=== PATIENT | female | born 1950 | race Caucasian/White ===

== ENCOUNTER 2016-11-15 16:30 | Emergency (ER) | payer MEDICARE, OTHER ==
[2016-11-15] MEDS ORDERED: EPINEPHrine 1 MG/ML 1 ML AMP IM STA (16:42)
[2016-11-15] MEDS ORDERED: diphenhydrAMINE 50 MG/ML 1 ML VIAL IVP STA (16:42)
[2016-11-15] MEDS ORDERED: methylPREDNISolone SOD SUCCI 125 MG/2 ML VIAL IV STA (16:42)
[2016-11-15] MEDS ORDERED: FAMOTIDINE 20 MG/2 ML VIAL IV STA (16:42)
[2016-11-15] MEDS ORDERED: SODIUM CHLORIDE 0.9% 500 ML IV STA (16:42)
[2016-11-15] MEDS ORDERED: SODIUM CHLORIDE 0.9% 1,000 ML IV STA ×3 (16:42→17:49)
[2016-11-15 16:44] VITALS: RESP 18
--- NOTE | 2016-11-15 16:53 | ED ---
General Adult HPI - General Chief complaint: Allergic Reaction Stated complaint: UNRESPONSIVE Time Seen by Provider: 11/15/16 16:34 Source: EMS Mode of arrival: EMS Limitations: no limitations - History of Present Illness Initial comments: This is a 66-year-old female who ER for evaluation today. This patient comes in here for eval initial syncopal event. Patient has no history of syncope. Patient states she doesn't feel like she had a urinary tract infection and began taking an antibiotic that was old that she prescribed or recommended for herself. Patient denies any other chest pain fever nausea this time. EMS also replaced over the patient was passed out when he got there. Patient never lost pulse. She does present today with itching hives and rash all over body anterior chest. Denies stridor denies tongue swelling denies shortness of breath. States her lips are swollen as well - Related Data Home Medications Medication Instructions Recorded Confirmed Hydrocortisone [Cortef] 10 mg PO HS 11/07/14 11/15/16 Hydrocortisone [Cortef] 20 mg PO QAM 11/07/14 11/15/16 Atenolol [Tenormin] 25 mg PO QAM 11/15/16 11/15/16 Atorvastatin Calcium [Lipitor] 10 mg PO HS 11/15/16 11/15/16 Levothyroxine Sodium [Synthroid] 75 mcg PO DAILY 11/15/16 11/15/16 Lisinopril [Prinivil] 20 mg PO HS 11/15/16 11/15/16 Solu-Cortef 100 mg IM ONCE 11/15/16 11/15/16 Previous Rx's Medication Instructions Recorded Famotidine [Pepcid] 20 mg PO BID #15 tablet 11/15/16 Hydrocortisone [Cortef] 20 mg PO BID #15 tablet 11/15/16 hydrOXYzine HCL [Atarax] 25 mg PO QID PRN #30 tab 11/15/16 Allergies Allergy/AdvReac Type Severity Reaction Status Date / Time adhesive Allergy Rash/Hives Verified 11/15/16 16:44 Review of Systems ROS Statement: Those systems with pertinent positive or pertinent negative responses have been documented in the HPI. ROS Other: All systems not noted in ROS Statement are negative. Past Medical History Past Medical History: Hypertension, Thyroid Disorder Additional Past Medical History / Comment(s): addisons disease History of Any Multi-Drug Resistant Organisms: None Reported Additional Past Surgical History / Comment(s): dental implant thyroid Past Psychological History: No Psychological Hx Reported Smoking Status: Light tobacco smoker Past Alcohol Use History: None Reported Past Drug Use History: None Reported General Exam - General Exam Comments Initial Comments: Rash across his entire chest and bilateral upper arms, mild lip swelling Limitations: no limitations General appearance: alert, in no apparent distress, anxious Head exam: Present: atraumatic, normocephalic, normal inspection Eye exam: Present: normal appearance, PERRL, EOMI. Absent: scleral icterus, conjunctival injection, periorbital swelling ENT exam: Present: normal exam, mucous membranes moist Neck exam: Present: normal inspection. Absent: tenderness, meningismus, lymphadenopathy Respiratory exam: Present: normal lung sounds bilaterally. Absent: respiratory distress, wheezes, rales, rhonchi, stridor Cardiovascular Exam: Present: regular rate, normal rhythm, normal heart sounds. Absent: systolic murmur, diastolic murmur, rubs, gallop, clicks GI/Abdominal exam: Present: soft, normal bowel sounds. Absent: distended, tenderness, guarding, rebound, rigid Extremities exam: Present: normal inspection, full ROM, normal capillary refill. Absent: tenderness, pedal edema, joint swelling, calf tenderness Back exam: Present: normal inspection Neurological exam: Present: alert, oriented X3, CN II-XII intact Psychiatric exam: Present: normal affect, normal mood Skin exam: Present: warm, dry, intact, normal color. Absent: rash Course Vital Signs 11/15/16 11/15/16 11/15/16 16:33 16:58 17:09 Temperature 97.5 F L Pulse Rate 82 68 82 Respiratory 18 18 18 Rate Blood Pressure 80/57 128/63 O2 Sat by Pulse 100 100 100 Oximetry 11/15/16 11/15/16 11/15/16 17:19 18:49 19:52 Temperature 98.7 F Pulse Rate 71 77 Respiratory 18 18 18 Rate Blood Pressure 134/67 168/97 O2 Sat by Pulse 100 100 Oximetry - Reevaluation(s) Reevaluation #1: 11/15/16 20:06 Patient's symptoms improved rapidly with injection of epinephrine and steroids here in the emergency room. Reevaluation #2: 11/15/16 20:06 Patient and family spoken with greater than 15 minutes regarding medication taking dosages and ALLERGIC reaction, all questions are answered EKG Findings - EKG Comments: EKG Findings:: EKG shows normal sinus rhythm rate of 80, SD 106, QRS 84, QTC 445 Medical Decision Making - Medical Decision Making 66-year-old here for evaluation of syncopal event, patient had ALLERGIC reaction syncope diffuse body rash lip swelling after taking an antibiotic earlier in the day, Keflex. Patient advised never to take any cephalosporin again, she does agreeable and understands. Patient given epinephrine and steroids in the emergency room, increased steroid dose at home twice a day. Secondary to history of Cowlitz's disease. Currently patient has no complaints , rash and symptoms have resolved, she feels well and can be discharged home. - Lab Data Result diagrams: 11/15/16 16:54 11/15/16 16:54 Lab Results 11/15/16 11/15/16 11/15/16 Range/Units 16:54 16:54 16:54 WBC 11.1 H (3.8-10.6) k/uL RBC 6.04 H (3.80-5.40) m/uL Hgb 18.6 H (11.4-16.0) gm/dL Hct 56.8 H (34.0-46.0) % MCV 94.1 (80.0-100.0) fL MCH 30.9 (25.0-35.0) pg MCHC 32.8 (31.0-37.0) g/dL RDW 13.5 (11.5-15.5) % Plt Count 238 (150-450) k/uL Neutrophils % 78 % Lymphocytes % 16 % Monocytes % 3 % Eosinophils % 1 % Basophils % 0 % Neutrophils # 8.6 H (1.3-7.7) k/uL Lymphocytes # 1.8 (1.0-4.8) k/uL Monocytes # 0.3 (0-1.0) k/uL Eosinophils # 0.1 (0-0.7) k/uL Basophils # 0.0 (0-0.2) k/uL PT (9.0-12.0) sec INR (<1.1) APTT (22.0-30.0) sec D-Dimer (<0.60) mg/L FEU Sodium 138 (137-145) mmol/L Potassium 4.2 (3.5-5.1) mmol/L Chloride 101 (98-107) mmol/L Carbon Dioxide 22 (22-30) mmol/L Anion Gap 15 mmol/L BUN 27 H (7-17) mg/dL Creatinine 1.28 H (0.52-1.04) mg/dL Est GFR (MDRD) Af Amer 51 (>60 ml/min/1.73 sqM) Est GFR (MDRD) Non-Af 42 (>60 ml/min/1.73 sqM) Glucose 226 H (74-99) mg/dL Plasma Lactic Acid Yohannes (0.7-2.0) mmol/L Calcium 9.9 (8.4-10.2) mg/dL Phosphorus 5.3 H (2.5-4.5) mg/dL Magnesium 1.8 (1.6-2.3) mg/dL Total Bilirubin 0.8 (0.2-1.3) mg/dL AST 22 (14-36) U/L ALT 22 (9-52) U/L Alkaline Phosphatase 59 (38-126) U/L Total Creatine Kinase 32 (30-135) U/L CK-MB (CK-2) 0.6 (0.0-2.4) ng/mL CK-MB (CK-2) Rel Index 1.9 Troponin I 0.014 (0.000-0.034) ng/mL Total Protein 6.8 (6.3-8.2) g/dL Albumin 3.8 (3.5-5.0) g/dL 11/15/16 11/15/16 Range/Units 16:54 16:54 WBC (3.8-10.6) k/uL RBC (3.80-5.40) m/uL Hgb (11.4-16.0) gm/dL Hct (34.0-46.0) % MCV (80.0-100.0) fL MCH (25.0-35.0) pg MCHC (31.0-37.0) g/dL RDW (11.5-15.5) % Plt Count (150-450) k/uL Neutrophils % % Lymphocytes % % Monocytes % % Eosinophils % % Basophils % % Neutrophils # (1.3-7.7) k/uL Lymphocytes # (1.0-4.8) k/uL Monocytes # (0-1.0) k/uL Eosinophils # (0-0.7) k/uL Basophils # (0-0.2) k/uL PT 11.1 (9.0-12.0) sec INR 1.1 (<1.1) APTT 21.1 L (22.0-30.0) sec D-Dimer 11.71 H (<0.60) mg/L FEU Sodium (137-145) mmol/L Potassium (3.5-5.1) mmol/L Chloride (98-107) mmol/L Carbon Dioxide (22-30) mmol/L Anion Gap mmol/L BUN (7-17) mg/dL Creatinine (0.52-1.04) mg/dL Est GFR (MDRD) Af Amer (>60 ml/min/1.73 sqM) Est GFR (MDRD) Non-Af (>60 ml/min/1.73 sqM) Glucose (74-99) mg/dL Plasma Lactic Acid Yohannes 3.8 H* (0.7-2.0) mmol/L Calcium (8.4-10.2) mg/dL Phosphorus (2.5-4.5) mg/dL Magnesium (1.6-2.3) mg/dL Total Bilirubin (0.2-1.3) mg/dL AST (14-36) U/L ALT (9-52) U/L Alkaline Phosphatase (38-126) U/L Total Creatine Kinase (30-135) U/L CK-MB (CK-2) (0.0-2.4) ng/mL CK-MB (CK-2) Rel Index Troponin I (0.000-0.034) ng/mL Total Protein (6.3-8.2) g/dL Albumin (3.5-5.0) g/dL - Radiology Data Radiology results: report reviewed (CTA chest CT and and pelvis negative for acute disease), image reviewed Critical Care Time Critical Care Time: Yes Total Critical Care Time: 31 Disposition Clinical Impression: Adverse reaction to drug, Allergic reaction, Anaphylaxis, Syncope Disposition: HOME SELF-CARE Condition: Good Instructions: Anaphylaxis (ED) Prescriptions: Famotidine [Pepcid] 20 mg PO BID #15 tablet Hydrocortisone [Cortef] 20 mg PO BID #15 tablet hydrOXYzine HCL [Atarax] 25 mg PO QID PRN #30 tab PRN Reason: Allergy Symptoms Referrals: Karan Mckeon MD [Primary Care Provider] - 1-2 days
[2016-11-15 17:06] LABS: Basophils % (A) 0 %; CH 30.9; Eosinophils # (A) 0.1 k/uL (0-0.7); Eosinophils % (A) 1 %; HCT 56.8 % (34.0-46.0); HDW 2.39; HGB 18.6 gm/dL (11.4-16.0); Luc # (Auto) 0.28; Luc % (Auto) 3; Lymphocytes # (A) 1.8 k/uL (1.0-4.8); Lymphocytes % (A) 16 %; MCH 30.9 pg (25.0-35.0); MCHC 32.8 g/dL (31.0-37.0); MCV 94.1 fL (80.0-100.0); Mean Platelet Volume 9.9; Monocytes # (A) 0.3 k/uL (0-1.0); Monocytes % (A) 3 %; Neutrophils # (A) 8.6 k/uL (1.3-7.7); Neutrophils % (A) 78 %; RBC 6.04 m/uL (3.80-5.40); RDW 13.5 % (11.5-15.5); WBC 11.1 k/uL (3.8-10.6); WBC (Perox) 11.19
[2016-11-15 17:14] LABS: INR 1.1 (<1.1); Partial Thromboplastin Time 21.1 sec (22.0-30.0); Prothrombin Time 11.1 sec (9.0-12.0)
[2016-11-15 17:24] LABS: Calcium 9.9 mg/dL (8.4-10.2); Magnesium 1.8 mg/dL (1.6-2.3); Phosphorous 5.3 mg/dL (2.5-4.5); Potassium 4.2 mmol/L (3.5-5.1); Total Bilirubin 0.8 mg/dL (0.2-1.3); Total Protein 6.8 g/dL (6.3-8.2)
[2016-11-15 17:34] LABS: Creatine Kinase MB 0.6 ng/mL (0.0-2.4); Troponin I 0.014 ng/mL (0.000-0.034)
[2016-11-15] MEDS ORDERED: ACETAMINOPHEN IV (For NPO) 1,000 MG in EMPTY BAG 1 BAG IVPB STA (17:39)
[2016-11-15] MEDS ORDERED: KETOROLAC 30 MG/ML 1 ML VIAL IVP STA (17:39)
[2016-11-15] MEDS ORDERED: RX INFO: IV CONTRAST WAS GIVEN 1 EACH MISC MISCELLANE PRN (17:48)
--- NOTE | 2016-11-15 19:07 | CT ---
EXAMINATION TYPE: CT angio chest DATE OF EXAM: 11/15/2016 6:34 PM COMPARISON: Chest x-ray 07 November 2014 HISTORY: Elevated D-Dimer and syncope today. CT DLP: 1489.9 mGycm Automated exposure control for dose reduction was used. CONTRAST: CTA scan of the thorax is performed with IV Contrast, patient injected with 50 mL of Visipaque 320, p ulmonary embolism protocol. MIP images are created and reviewed. 3D reconstructed images are create d on an independent workstation and reviewed. FINDINGS: LUNGS: The lungs are grossly clear, there is no concerning parenchymal mass or nodule identified. T here is no pleural effusion or pneumothorax seen. The tracheobronchial tree is patent. AORTA: No additional significant abnormality is seen. MEDIASTINUM: There is satisfactory enhancement of the pulmonary artery and its branches, there is no CT evidence for pulmonary embolism. There are no greater than 1 cm hilar or mediastinal lymph nodes. There are some calcified mediastinal nodes, small prevascular nodes No pericardial effusion is seen . OTHER: There is a hyperdense mass associated with the posterior left kidney measuring approximately 19 mm which is indeterminate. IMPRESSION: NO PULMONARY EMBOLISM. QUESTION OLD GRANULOMATOUS DISEASE. INDETERMINATE LEFT RENAL MASS, FOLLOW-UP I S RECOMMENDED
--- NOTE | 2016-11-15 19:12 | CT ---
EXAMINATION TYPE: CT abdomen pelvis w con DATE OF EXAM: 11/15/2016 6:34 PM COMPARISON: NONE HISTORY: Lower back pain. CT DLP: 1489.9 mGycm Automated exposure control for dose reduction was used. TECHNIQUE: Helical acquisition of images was performed from the lung bases through the pelvis. CONTRAST: Performed without Oral Contrast and with IV Contrast, patient injected with 50 mL of Visipaque 320. FINDINGS: LUNG BASES: No significant abnormality is appreciated. LIVER/GB: Liver shows low attenuation possibly due to fatty infiltration. Gallbladder shows no wall i rregularity anteriorly with possible associated calcification which is indeterminate, there may be an adherent stone present PANCREAS: No significant abnormality is seen. SPLEEN: No significant abnormality is seen. ADRENALS: Not well seen KIDNEYS: Hyperdense lesion associated with the upper pole of the left kidney may represent a hyperden se cyst but is indeterminate, bilateral cortical cysts are present within the kidneys, no hydronephro sis RETROPERITONEAL ADENOPATHY: None visualized REPRODUCTIVE ORGANS: Uterus and adnexal structures are not seen URINARY BLADDER: No significant abnormality is seen. PELVIC ADENOPATHY: None visualized. OSSEOUS STRUCTURES: No significant abnormality is seen. BOWEL: There are small bowel loops which are fluid-filled and show wall thickening throughout much o f the abdomen, some associated free fluid is present within the pelvis. Colonic wall thickening may b e present as well. The appendix is not visualized with certainty. OTHER: IMPRESSION: CORRELATE FOR ENTERITIS, COLITIS. POSSIBLE PROTEINACEOUS CYST IN THE LEFT KIDNEY, FOLLOW-UP IS RECOMM ENDED.
[2016-11-15] MEDS ORDERED: HYDROCORTISONE 20 MG TAB PO STA (19:42)
[2016-11-15 19:53] VITALS: BP 168/97; PULSE 77; TEMP 98.7
== END 2016-11-15 20:27 | disposition home or self-care (01) ==
LOC: EC 16:30
DX: R55 Syncope and collapse (principal); R21 Rash and other nonspecific skin eruption; R22.0 Localized swelling, mass and lump, head; T88.6XXA Anaphylactic reaction due to adverse effect of correct drug or medicament properly administered, initial encounter; T36.1X5A Adverse effect of cephalosporins and other beta-lactam antibiotics, initial encounter; I10 Essential (primary) hypertension; E07.9 Disorder of thyroid, unspecified; E27.1 Primary adrenocortical insufficiency; F17.200 Nicotine dependence, unspecified, uncomplicated; Z79.899 Other long term (current) drug therapy; Z91.048 Other nonmedicinal substance allergy status
CPT/HCPCS: 99291; 96374; 96375 ×4; 96361 ×3; 96372; 36415; 93005; 85379; 80053; 82550; 82553; 83605; 83735; 84100; 84484; 85025; 85610; 85730; 71275; 74177; J0171; J1200; J2930; Q9967; J1885; J0131

== ENCOUNTER 2018-06-05 10:28 | Emergency (ER) | payer MEDICARE, OTHER ==
[2018-06-05] MEDS ORDERED: SODIUM CHLORIDE 0.9% 1,000 ML IV STA (11:01)
[2018-06-05] MEDS ORDERED: METOCLOPRAMIDE 5 MG/ML 2 ML VIAL IVP STA (11:01)
--- NOTE | 2018-06-05 11:04 | ED ---
General Adult HPI - General Chief complaint: Recheck/Abnormal Lab/Rx Stated complaint: villasenor Time Seen by Provider: 06/05/18 10:53 Source: patient, RN notes reviewed Mode of arrival: ambulatory Limitations: no limitations - History of Present Illness Initial comments: Patient is a pleasant 67-year-old female presenting to the emergency Department with headache. Headache has been waxing and waning over the past week. Headache was not sudden onset. Headache generally is not severe however more bothersome. Discomfort is diffuse. Patient did have some blurry vision earlier. No photophobia. No nausea vomiting. No history of chronic headaches. Blood pressure has been running high. Patient did take an extra clonidine this morning. Blood pressure has been as high as 192/114. - Related Data Home Medications Medication Instructions Recorded Confirmed Hydrocortisone [Cortef] 10 mg PO HS 11/07/14 11/15/16 Hydrocortisone [Cortef] 20 mg PO QAM 11/07/14 11/15/16 Atenolol [Tenormin] 25 mg PO QAM 11/15/16 11/15/16 Atorvastatin Calcium [Lipitor] 10 mg PO HS 11/15/16 11/15/16 Levothyroxine Sodium [Synthroid] 75 mcg PO DAILY 11/15/16 11/15/16 Lisinopril [Prinivil] 20 mg PO HS 11/15/16 11/15/16 Solu-Cortef 100 mg IM ONCE 11/15/16 11/15/16 Previous Rx's Medication Instructions Recorded Famotidine [Pepcid] 20 mg PO BID #15 tablet 11/15/16 Hydrocortisone [Cortef] 20 mg PO BID #15 tablet 11/15/16 hydrOXYzine HCL [Atarax] 25 mg PO QID PRN #30 tab 11/15/16 Allergies Allergy/AdvReac Type Severity Reaction Status Date / Time adhesive Allergy Rash/Hives Verified 06/05/18 10:35 Review of Systems ROS Statement: Those systems with pertinent positive or pertinent negative responses have been documented in the HPI. ROS Other: All systems not noted in ROS Statement are negative. Constitutional: Denies: fever Eyes: Denies: eye pain ENT: Denies: ear pain Respiratory: Denies: cough Cardiovascular: Denies: chest pain Endocrine: Denies: fatigue Gastrointestinal: Denies: abdominal pain, nausea, vomiting Genitourinary: Denies: dysuria Musculoskeletal: Denies: back pain Skin: Denies: rash Neurological: Reports: headache. Denies: weakness, confusion Past Medical History Past Medical History: Hypertension, Thyroid Disorder Additional Past Medical History / Comment(s): addisons disease History of Any Multi-Drug Resistant Organisms: None Reported Additional Past Surgical History / Comment(s): dental implant thyroid Past Psychological History: No Psychological Hx Reported Smoking Status: Light tobacco smoker Past Alcohol Use History: None Reported Past Drug Use History: None Reported General Exam Limitations: no limitations General appearance: alert, in no apparent distress Head exam: Present: atraumatic, normocephalic, other (No tenderness over the temporal artery.) Eye exam: Present: normal appearance, PERRL, EOMI. Absent: nystagmus ENT exam: Present: normal oropharynx Neck exam: Present: normal inspection. Absent: tenderness, meningismus Respiratory exam: Present: normal lung sounds bilaterally Cardiovascular Exam: Present: regular rate, normal rhythm GI/Abdominal exam: Present: soft. Absent: tenderness Extremities exam: Present: normal inspection Neurological exam: Present: alert, CN II-XII intact. Absent: motor sensory deficit Expanded Neurological exam: Present: protecting the airway Speech: Present: fluid speech Cranial nerves: EOM's Intact: Normal, Facial Sensation: Normal Cerebellar function: Finger to Nose: Normal Sensory exam: Upper Extremity Light Touch: Normal, Lower Extremity Light Touch: Normal Motor strength exam: RUE: 5, LUE: 5, RLE: 5, LLE: 5 Eye Response: (4) open spontaneously Motor Response: (6) obeys commands Verbal Response: (5) oriented Psychiatric exam: Present: normal affect, normal mood Skin exam: Present: normal color Course Vital Signs 06/05/18 06/05/18 10:34 12:59 Temperature 98.0 F Pulse Rate 50 L Respiratory 20 Rate Blood Pressure 144/85 178/79 O2 Sat by Pulse 96 Oximetry Medical Decision Making - Medical Decision Making Patient reevaluated and resting comfortably in bed. Patient states headache has resolved. Patient updated on results and need for follow-up. - Lab Data Lab Results 06/05/18 Range/Units 11:30 ESR 13 (0-20) mm/hr - Radiology Data Radiology results: image reviewed (Computed tomography scan of the brain reveals no acute intercranial abnormality. Old lacunar infarct.) Disposition Clinical Impression: Headache, Hypertension Disposition: HOME SELF-CARE Condition: Stable Instructions: Acute Headache (ED), Hypertension (ED) Additional Instructions: Please follow-up with primary care physician in the next couple days for recheck. Have primary care physician review recent blood pressures. Return for uncontrolled blood pressure, increased pain, confusion or weakness, worsening symptoms or other concerns. Is patient prescribed a controlled substance at d/c from ED?: No Referrals: Karan Mckeon MD [Primary Care Provider] - 1-2 days Time of Disposition: 13:01
--- NOTE | 2018-06-05 12:35 | CT ---
EXAMINATION TYPE: CT brain wo con DATE OF EXAM: 06/05/2018 COMPARISON: Previous study dated 11/07/2014. HISTORY: Headache and hypertension CT DLP: 1121 mGycm Automated exposure control for dose reduction was used. FINDINGS: There is evidence of an old lacunar infarct in the internal capsule on the right. There are mild changes of sulcal prominence and ventriculomegaly compatible with atrophic change. The re is diffuse periventricular white matter lucency compatible with chronic white matter ischemic albright ge. There is physiologic calcification of the basal ganglia. There is no acute focal lesion, mass effect or midline shift identified. I do not see evidence of int racranial blood. Visualized portions of the paranasal sinuses and mastoids are clear. The bony calvarium is intact. IMPRESSION: 1. NO ACUTE INTRACRANIAL ABNORMALITY. 2. OLD LACUNAR INFARCT IN THE INTERNAL CAPSULE ON THE RIGHT. 3. MILD DEGENERATIVE CHANGE.
[2018-06-05 13:11] VITALS: BP 167/76; PULSE 75; RESP 16; TEMP 97
== END 2018-06-05 13:05 | disposition home or self-care (01) ==
LOC: EC 10:28
DX: I10 Essential (primary) hypertension (principal); R51 Headache; F17.200 Nicotine dependence, unspecified, uncomplicated; Z79.899 Other long term (current) drug therapy; Z91.048 Other nonmedicinal substance allergy status
CPT/HCPCS: 36415; 85652; 70450; 99284; 96374; 96361; J2765

== ENCOUNTER → 2018-08-10 | Outpatient (CLI) | payer MEDICARE, OTHER ==
--- NOTE | 2018-08-10 13:58 | XR ---
EXAMINATION TYPE: XR chest 2V DATE OF EXAM: 08/10/2018 COMPARISON: Prior chest x-ray 11/07/2014 HISTORY: Shortness of breath TECHNIQUE: Frontal and lateral views of the chest are obtained. FINDINGS: There is no focal air space opacity, pleural effusion, or pneumothorax seen. The cardiac silhouette size is within normal limits. There may be a spinal curvature. There is eventration of th e hemidiaphragms. Prominent lung lines are noted. The osseous structures are intact. IMPRESSION: No acute cardiopulmonary process.
--- NOTE | 2018-08-10 15:34 | CT ---
EXAMINATION TYPE: CT angio head DATE OF EXAM: 08/10/2018 12:38 PM COMPARISON: None HISTORY: Head throbbing while laying down CT DLP: 980.7 mGycm Automated exposure control for dose reduction was used. TECHNIQUE: Performed with IV Contrast, patient injected with 80 mL of Isovue 370. Three-D reconstructed images performed on the [employer] computer by the technologist are filmed and pres ented.. FINDINGS: Internal carotid arteries bifurcate normally into A1 and M1 segments. A2 segments are normal. The ant erior communicating artery is patent. No posterior communicating arteries are identified. Vertebral basilar system appears normal. Posterior cerebral vasculature appears normal. No suspicious arterial venous malformations are evident. No aneurysm is identified. Source images are reviewed. Images through the brain as visualized appear grossly normal. IMPRESSION: CTA PAIUTE OF [place] APPEARS UNREMARKABLE.
== END | disposition home or self-care (01) ==
LOC: RADCTMAIN 11:08
PROVIDERS: ATTEND Internal Medicine Geriatric Medicine
DX: R51 Headache (principal); R06.02 Shortness of breath
CPT/HCPCS: 82565; 84520; 71046; 70496; 36415; Q9967

== ENCOUNTER → 2018-08-19 | Outpatient (CLI) | payer MEDICARE, OTHER ==
[2018-08-19 11:17] LABS: T4, Free (Free Thyroxine) 1.47 ng/dL (0.78-2.19)
--- NOTE | 2018-08-19 14:41 | BD ---
EXAMINATION TYPE: Bone Density DATE OF EXAM: 08/19/2018 CLINICAL HISTORY: Height: 63.5 Weight: 139 FRAX RISK QUESTIONS: Alcohol (3 or more units per day): no Family History (Parent hip fracture): no Glucocorticoids (More than 3mos): yes (Ex: prednisone, prednisolone, methylprednisolone, dexamethasone, and hydrocortisone). History of Fracture in Adulthood: no Secondary Osteoporosis: 1. Type 1 Diabetes: no 2. Hyperthyroidism: previously yes 3. Menopause before 45: yes 4. Malnutrition: no 5. Chronic liver disease: no Rheumatoid Arthritis: no Current Tobacco Use: no RISK FACTORS HISTORY OF: Family History of Osteoporosis: not that patient is aware Active: yes Diet low in dairy products/other sources of calcium: no Postmenopausal woman: yes Take estrogen and/or progesterone medications: no now How long: about 20 years Lost more than 2 inches in height since high school: no Frequent falls: no Poor Health: "pretty good considering current health concerns" Hyperparathyroidism: no Adrenal Insufficiency: Addisons MEDICATIONS: Prednisone or other steroids: yes How Long: about 30 years Thyroid Medications: yes Which medication: Synthroid How Long: about 8 years Osteoporosis Medications: not now Which medication: Actonel How Long: briefly Additional Medications: blood pressure meds, cholesterol meds Additional History: Ángel's disease since age 21; oblated thyroid with radioactive treatment years ago EXAM MEASUREMENTS: Bone mineral densitometry was performed using the [employer] System. Bone mineral density as measured about the Lumbar spine is: ----- L1-L4(G/cm2): 0.996 T Score Values are as follows: ----- L2: -2-2 ----- L3: -1.2 ----- L4: -1.2 ----- L1-L4: -1.5 Bone mineral density has: Decreased -3.2% since study of: 03/28/2005 Bone mineral density about the R hip (g/cm2): 0.742 Bone mineral density about the L hip (g/cm2): 0.742 T Score values are as follows: -----R Neck: -2.1 -----L Neck: -2.1 -----R Total: -1.6 -----L Total: -1.8 Bone mineral density has: Decreased -4.0% since study of: 03/28/2005 IMPRESSION: Osteopenia NOTE: T-SCORE=SD OF THE YOUNG ADULT MEAN.
== END | disposition home or self-care (01) ==
LOC: RADBDWWP 11:23
PROVIDERS: ATTEND Internal Medicine
DX: M85.88 Other specified disorders of bone density and structure, other site (principal); Z79.51 Long term (current) use of inhaled steroids
CPT/HCPCS: 36415; 77080; 84439; 84443

== ENCOUNTER → 2020-06-01 | Outpatient (CLI) | payer MEDICARE ==
--- NOTE | 2020-06-01 10:23 | US ---
EXAMINATION TYPE: US kidneys/renal and bladder DATE OF EXAM: 06/01/2020 COMPARISON: US 12/04/2016, CT 11/15/2016 CLINICAL HISTORY: R31.9 Hematuria. EXAM MEASUREMENTS: Right Kidney: 9.4 x 4.3 x 4.3 cm Left Kidney: 9.3 x 4.1 x 3.6 cm Right Kidney: No hydronephrosis. Multiple cystic areas visualized, largest measuring 0.8 x 0.8 x 1.0 cm Left Kidney: No hydronephrosis. Unable to visualized area seen on previous. Echogenic foci visualized measuring 0.3 cm Bladder: wnl Bilateral Jets seen: Yes There is no evidence for hydronephrosis at this point in time. The urinary bladder is anechoic. Seferino ateral ureteral jets are seen. IMPRESSION: Small cysts of the right kidney. Nonobstructing calculus left kidney.
== END | disposition home or self-care (01) ==
LOC: RADUSWWP 09:16
PROVIDERS: ATTEND Internal Medicine Geriatric Medicine
DX: N28.1 Cyst of kidney, acquired (principal); N20.0 Calculus of kidney
CPT/HCPCS: 76770

== ENCOUNTER → 2020-07-16 | Outpatient (CLI) | payer MEDICARE ==
--- NOTE | 2020-07-16 15:42 | CT ---
EXAMINATION TYPE: CT abdomen pelvis wo/w con DATE OF EXAM: 07/16/2020 COMPARISON: 11/15/2016 HISTORY: Back and abdominal pain x [address] DLP: 777.7 mGycm CONTRAST: CT scan of the abdomen and pelvis is performed with Oral Contrast and without and with IV Contrast, p atient injected with 100 mL of Isovue M300. FINDINGS: LUNG BASES-: No visible nodule. No infiltrate. LIVER/GB: No calcified gallstones. No space occupying hepatic lesion. Biliary tree is of normal ca liber. PANCREAS: No inflammation. No distinct mass. SPLEEN: No splenic enlargement. No lesion seen. ADRENALS: No nodule. No thickening. KIDNEYS/BLADDER: No hydronephrosis. No nephrolithiasis. Stable exophytic lesion upper pole left kid raquel medially measuring 1.6 cm which demonstrates Hounsfield unit measurement of approximately 47 both before and after the administration of contrast. This likely reflects a hemorrhagic or highly protei naceous cyst. Subcentimeter simple cysts are also noted bilaterally. Urinary bladder grossly unremark able. BOWEL: Normal appendix. Normal bowel caliber. No inflammation. GENITAL ORGANS: No gross abnormality. LYMPH NODES: No greater than 1cm abdominal or pelvic lymph nodes are appreciated. AORTA: No significant abnormality. OSSEOUS STRUCTURES: No significant abnormality is seen. OTHER: No significant additional abnormality is seen. IMPRESSION: 1. Stable exophytic cyst upper pole left kidney which may reflect a highly proteinaceous or hemorrhag ic cyst. Additional small subcentimeter simple cysts appreciated.
== END | disposition home or self-care (01) ==
LOC: RADCTMAIN 13:15
PROVIDERS: ATTEND Internal Medicine Geriatric Medicine
DX: N28.1 Cyst of kidney, acquired (principal)
CPT/HCPCS: 82565; 84520; 74178; 36415; Q9967 ×2

== ENCOUNTER 2023-06-24 16:39 | Observation (INO) | payer MEDICARE ==
[2023-06-24 17:45] LABS: AST 27 U/L (14-36); African American GFR (CKD) 83 (>60 ml/min/1.73 sqM); Alkaline Phosphatase 70 U/L (38-126); Anion Gap 7 mmol/L; Blood Urea Nitrogen 12 mg/dL (7-17); Calcium 9.4 mg/dL (8.4-10.2); Carbon Dioxide 30 mmol/L (22-30); Chloride 104 mmol/L (98-107); Glucose 116 mg/dL (74-99); Non-African American GFR(CKD) 72 (>60 ml/min/1.73 sqM); Potassium 3.2 mmol/L (3.5-5.1); Sodium 141 mmol/L (137-145); Total Bilirubin 0.4 mg/dL (0.2-1.3); Total Protein 6.9 g/dL (6.3-8.2)
[2023-06-24 17:55] LABS: Basophils % (A) 1 %; Eosinophils # (A) 0.3 k/uL (0-0.7); Eosinophils % (A) 5 %; HCT 43.1 % (34.0-46.0); HGB 14.5 gm/dL (11.4-16.0); Lymphocytes # (A) 2.2 k/uL (1.0-4.8); Lymphocytes % (A) 34 %; MCH 29.9 pg (25.0-35.0); MCHC 33.6 g/dL (31.0-37.0); MCV 89.1 fL (80.0-100.0); Mean Platelet Volume 11.7; Monocytes # (A) 0.4 k/uL (0-1.0); Monocytes % (A) 6 %; Neutrophils # (A) 3.5 k/uL (1.3-7.7); Neutrophils % (A) 53 %; Platelet Count 182 k/uL (150-450); RBC 4.84 m/uL (3.80-5.40); RDW 13.6 % (11.5-15.5); WBC 6.6 k/uL (3.8-10.6)
[2023-06-24] MEDS ORDERED: hydrALAZINE HCL 20 MG/ML 1 ML VIAL IVP STA (18:12)
--- NOTE | 2023-06-24 18:12 | ED ---
General Adult HPI - General Chief complaint: Recheck/Abnormal Lab/Rx Stated complaint: HTN Source: patient Mode of arrival: wheelchair Limitations: no limitations - History of Present Illness Initial comments: 72-year-old female presents to the emergency department by Dr. Tellez office for admission. 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 She does take lisinopril twice daily as well as hydralazine 4 times daily. States she has been taking his medications as directed however continues to have intense headaches with uncontrolled high blood pressure. She went into Dr. Tellez office today and they sent her to the hospital for admi ssion. It has been too hard to control her blood pressures with oral medications. Patient reports to an intense headache. Denies any chest pain or shortness of breath. No visual changes. Denies any weakness or numbness in her extremities. Denies any missed doses of her medication. No other alleviating, precipitating or modifying factors - Related Data Home Medications Medication Instructions Recorded Confirmed Hydrocortisone [Cortef] 10 mg PO BID 11/07/14 06/24/23 Levothyroxine Sodium [Synthroid] 75 mcg PO DAILY 11/15/16 06/24/23 lisinopriL [Prinivil] 20 mg PO BID 11/15/16 06/24/23 Rosuvastatin [Crestor] 20 mg PO HS 06/24/23 06/24/23 hydrALAZINE HCL [Apresoline] 25 mg PO QID 06/24/23 06/24/23 Allergies Allergy/AdvReac Type Severity Reaction Status Date / Time adhesive Allergy Rash/Hives Verified 06/24/23 19:25 Review of Systems ROS Statement: Those systems with pertinent positive or pertinent negative responses have been documented in the HPI. ROS Other: All systems not noted in ROS Statement are negative. Past Medical History Past Medical History: Hypertension, Thyroid Disorder Additional Past Medical History / Comment(s): addisons disease History of Any Multi-Drug Resistant Organisms: None Reported Additional Past Surgical History / Comment(s): dental implant thyroid Past Psychological History: No Psychological Hx Reported Past Alcohol Use History: None Reported Past Drug Use History: None Reported General Exam Limitations: no limitations General appearance: alert, in no apparent distress Head exam: Present: atraumatic, normocephalic, normal inspection Eye exam: Present: normal appearance, PERRL, EOMI. Absent: scleral icterus, conjunctival injection, periorbital swelling ENT exam: Present: normal exam, mucous membranes moist Neck exam: Present: normal inspection. Absent: tenderness, meningismus, lymphadenopathy Respiratory exam: Present: normal lung sounds bilaterally. Absent: respiratory distress, wheezes, rales, rhonchi, stridor Cardiovascular Exam: Present: regular rate, normal rhythm, normal heart sounds. Absent: systolic murmur, diastolic murmur, rubs, gallop, clicks GI/Abdominal exam: Present: soft, normal bowel sounds. Absent: distended, tenderness, guarding, rebound, rigid Extremities exam: Present: normal inspection, full ROM, normal capillary refill. Absent: tenderness, pedal edema, joint swelling, calf tenderness Back exam: Present: normal inspection Neurological exam: Present: alert, oriented X3, CN II-XII intact Psychiatric exam: Present: normal affect, normal mood Skin exam: Present: warm, dry, intact, normal color. Absent: rash Course Vital Signs 06/24/23 06/24/23 06/24/23 16:42 17:30 18:00 Temperature 98.3 F Pulse Rate 60 57 L 62 Respiratory 15 18 18 Rate Blood Pressure 220/95 191/85 205/88 O2 Sat by Pulse 97 99 99 Oximetry 06/24/23 06/24/23 06/24/23 18:30 19:00 19:30 Temperature Pulse Rate 61 69 72 Respiratory 18 18 17 Rate Blood Pressure 228/103 154/72 132/68 O2 Sat by Pulse 99 99 98 Oximetry 06/24/23 06/24/23 06/24/23 20:00 20:30 21:00 Temperature Pulse Rate 67 68 64 Respiratory 18 17 18 Rate Blood Pressure 140/72 138/72 151/75 O2 Sat by Pulse 98 99 99 Oximetry 06/24/23 21:30 Temperature Pulse Rate 62 Respiratory 18 Rate Blood Pressure 136/71 O2 Sat by Pulse 98 Oximetry Medical Decision Making - Medical Decision Making Was pt. sent in by a medical professional or institution (, PA, SOFTWARE RELEASE ENGINEER, urgent care, hospital, or prison...) When possible be specific @ -Dr. Tellez office Did you speak to anyone other than the patient for history (EMS, parent, family, police, friend...)? What history was obtained from this source @ -Dr. Mckeon Did you review nursing and triage notes (agree or disagree)? Why? @ -I reviewed and agree with nursing and triage notes Were old charts reviewed (outside hosp., previous admission, EMS record, old EKG, old radiological studies, urgent care reports/EKG's, prison records)? Report findings @ -No old charts were reviewed Differential Diagnosis (chest pain, altered mental status, abdominal pain women, abdominal pain men, vaginal bleeding, weakness, fever, dyspnea, syncope, headache, dizziness, GI bleed, back pain, seizure, CVA, palpatations, mental health, musculoskeletal)? @ -Differential Headache: Migraine, tension, cluster, carbon monoxide, central venous thrombosis, pension karma temporal arteritis, acute closure glaucoma, intercranial hemorrhage, mastoiditis, sinusitis, head injury, this is not meant to be an all-inclusive list. EKG interpreted by me (3pts min.). @ -Yes and demonstrates sinus rhythm with rate of 61. CO interval 130. QRS 90. QTC of 448. No acute ST segment elevations or depressions X-rays interpreted by me (1pt min.). @ -None done CT interpreted by me (1pt min.). @ -None done U/S interpreted by me (1pt. min.). @ -None done What testing was considered but not performed or refused? (CT, X-rays, U/S, labs)? Why? @ -None What meds were considered but not given or refused? Why? @ -None Did you discuss the management of the patient with other professionals (professionals i.e. , PA, SOFTWARE RELEASE ENGINEER, lab, RT, psych nurse, social media marketer, machine woodworking sander, teacher, chief operating officer, pillowcase cutter)? Give summary @ -Spoke with Valentina from [facility] Was smoking cessation discussed for >3mins.? @ -No Was critical care preformed (if so, how long)? @ -No Were there social determinants of health that impacted care today? How? (Homelessness, low income, unemployed, alcoholism, drug addiction, transpo rtation, low edu. Level, literacy, decrease access to med. care, [facility], rehab)? @ -No Was there de-escalation of care discussed even if they declined (Discuss DNR or withdrawal of care, Hospice)? DNR status @ -No What co-morbidities impacted this encounter? (DM, HTN, Smoking, COPD, CAD, Cancer, CVA, ARF, Chemo, Hep., AIDS, mental health diagnosis, sleep apnea, morbid obesity)? @ -Ángel's disease, hypertension Was patient admitted / discharged? Hospital course, mention meds given and route, prescriptions, significant lab abnormalities, going to OR and other pertinent info. @ -Arrival patient was placed in room 16. There are history of physical exam was performed. Patient markedly hypertensive. Laboratory studies are conducted and reviewed. I did give the patient 20 of hydralazine which she does have improvement in her blood pressure. I discussed the diagnosis, differential and treatment options. Patient will be admitted as it is proven her home m edications are not controlling her blood pressure. Patient requires nephrology consultation. Spoke with Valentina from [facility] who agreed to admit patient Undiagnosed new problem with uncertain prognosis? @ -yes Drug Therapy requiring intensive monitoring for toxicity (Heparin, Nitro, Insulin, Cardizem)? @ -No Were any procedures done? @ -No Diagnosis/symptom? @ -Accelerated hypertension, history of [place]'s disease, acute cephalgia Acute, or Chronic, or Acute on Chronic? @ -Acute on chronic Uncomplicated (without systemic symptoms) or Complicated (systemic symptoms)? @ -Complicated Side effects of treatment? @ -Hypotension Exacerbation, Progression, or Severe Exacerbation? @ -Yes Poses a threat to life or bodily function? How? (Chest pain, [place], [place], pneumonia, PE, COPD, DKA, ARF, appy, cholecystitis, CVA, Diverticulitis, Homicidal, Suicidal, threat to staff... and all critical care pts) @ -No - Lab Data Result diagrams: 06/24/23 17:17 06/24/23 17:17 Lab Results 06/24/23 06/24/23 Range/Units 17:17 17:17 WBC 6.6 (3.8-10.6) k/uL RBC 4.84 (3.80-5.40) m/uL Hgb 14.5 (11.4-16.0) gm/dL Hct 43.1 (34.0-46.0) % MCV 89.1 (80.0-100.0) fL MCH 29.9 (25.0-35.0) pg MCHC 33.6 (31.0-37.0) g/dL RDW 13.6 (11.5-15.5) % Plt Count 182 (150-450) k/uL MPV 11.7 Neutrophils % 53 % Lymphocytes % 34 % Monocytes % 6 % Eosinophils % 5 % Basophils % 1 % Neutrophils # 3.5 (1.3-7.7) k/uL Lymphocytes # 2.2 (1.0-4.8) k/uL Monocytes # 0.4 (0-1.0) k/uL Eosinophils # 0.3 (0-0.7) k/uL Basophils # 0.0 (0-0.2) k/uL Sodium 141 (137-145) mmol/L Potassium 3.2 L (3.5-5.1) mmol/L Chloride 104 (98-107) mmol/L Carbon Dioxide 30 (22-30) mmol/L Anion Gap 7 mmol/L BUN 12 (7-17) mg/dL Creatinine 0.82 (0.52-1.04) mg/dL Est GFR (CKD-EPI)AfAm 83 (>60 ml/min/1.73 sqM) Est GFR (CKD-EPI)NonAf 72 (>60 ml/min/1.73 sqM) Glucose 116 H (74-99) mg/dL Calcium 9.4 (8.4-10.2) mg/dL Total Bilirubin 0.4 (0.2-1.3) mg/dL AST 27 (14-36) U/L ALT 14 (4-34) U/L Alkaline Phosphatase 70 (38-126) U/L Total Protein 6.9 (6.3-8.2) g/dL Albumin 4.0 (3.5-5.0) g/dL TSH 0.077 L (0.465-4.680) mIU/L Free T4 1.88 (0.78-2.19) ng/dL Disposition Clinical Impression: Accelerated hypertension, Addisons disease Disposition: ADMITTED IP TO THIS [facility] Condition: Stable Is patient prescribed a controlled substance at d/c from ED?: No Time of Disposition: 21:01 Decision to Admit Reason: Admit from EC Decision Date: 06/24/23 Decision Time: 21:01
[2023-06-24] MEDS ORDERED: ACETAMINOPHEN TAB 500 MG TAB PO STA (18:44)
[2023-06-24 19:26] LABS: ALT 14 U/L (4-34)
[2023-06-24 20:08] LABS: T4, Free (Free Thyroxine) 1.88 ng/dL (0.78-2.19)
[2023-06-24] MEDS ORDERED: NALOXONE 0.4 MG/ML 1 ML VIAL IV PRN (21:02)
[2023-06-24] MEDS: ACETAMINOPHEN TAB 325 MG TAB PO PRN (22:40)
[2023-06-24] MEDS: ATORVASTATIN 40 MG TAB PO SCH (22:41)
[2023-06-24] MEDS: hydrALAZINE HCL 25 MG TAB PO SCH (22:41)
[2023-06-24] MEDS: HYDROCORTISONE 10 MG TAB PO SCH (22:41)
[2023-06-25] MEDS ORDERED: LEVOTHYROXINE 75 MCG TAB PO SCH (06:30)
[2023-06-25] MEDS ORDERED: Potassium Replacement Protocol 1 EACH MISC MISCELLANE PRN (07:15)
[2023-06-25] MEDS: hydrALAZINE HCL 25 MG TAB PO SCH ×4 (09:20→22:03)
[2023-06-25] MEDS: POTASSIUM CHLORIDE ER 20 MEQ TAB.ER PO SCH ×3 (09:20→11:29)
[2023-06-25] MEDS: lisinopriL 20 MG TAB PO SCH ×2 (09:20→22:03)
[2023-06-25] MEDS: HYDROCORTISONE 10 MG TAB PO SCH ×2 (09:20→22:03)
[2023-06-25] MEDS: ACETAMINOPHEN TAB 325 MG TAB PO PRN (09:23)
[2023-06-25 10:45] LABS: Basophils % (A) 1 %; Eosinophils # (A) 0.3 k/uL (0-0.7); Eosinophils % (A) 6 %; HCT 43.1 % (34.0-46.0); HGB 14.2 gm/dL (11.4-16.0); Lymphocytes # (A) 2.3 k/uL (1.0-4.8); Lymphocytes % (A) 39 %; MCH 29.8 pg (25.0-35.0); MCV 90.2 fL (80.0-100.0); Mean Platelet Volume 10.8; Monocytes # (A) 0.4 k/uL (0-1.0); Monocytes % (A) 6 %; Neutrophils # (A) 2.8 k/uL (1.3-7.7); Neutrophils % (A) 48 %; Platelet Count 211 k/uL (150-450); RBC 4.78 m/uL (3.80-5.40); RDW 13.6 % (11.5-15.5)
[2023-06-25 10:58] LABS: African American GFR (CKD) 79 (>60 ml/min/1.73 sqM); Anion Gap 8 mmol/L; Blood Urea Nitrogen 15 mg/dL (7-17); Calcium 9.6 mg/dL (8.4-10.2); Carbon Dioxide 29 mmol/L (22-30); Chloride 102 mmol/L (98-107); Glucose 101 mg/dL (74-99); Non-African American GFR(CKD) 68 (>60 ml/min/1.73 sqM); Potassium 3.4 mmol/L (3.5-5.1); Sodium 139 mmol/L (137-145)
[2023-06-25] MEDS: IOPAMIDOL CONTRAST (ORAL USE) VIAL PO PRN ×2 (11:53→12:55)
--- NOTE | 2023-06-25 12:38 | P.NPCON ---
History of Present Illness - Reason for Consult accelerated hypertension - History of Present Illness Patient is a 72-year-old female with history of adrenal insufficiency diagnosed about 45 years ago and currently maintained on Cortef. Patient also has a history of hypertension which had been previously very well controlled on one medication. Patient is admitted to the hospital with history of uncontrolled hypertension for about 2-3 weeks prior to admission. Hydralazine was recently added but blood pressure remained significantly elevated and therefore patient was advised admission. Patient denies any change in her diet. No history of use of NSAIDs No reported increase in external stress inducing factors No complaints of palpitations Patient has had a headache which improved with improved blood pressure. Patient only received 1 dose of IV hydralazine and is currently very well controlled with systolic blood pressure in the 120-109 mmHg range. Currently maintained on home dose of lisinopril and hydralazine. Admitting blood pressure was 220/95 No complaints of chest pain or shortness of breath. Patient has complained of increased weakness on and off for many years. She has not followed up with an senior vice president and chief information officer for many years now. Dose of Cortef has not changed recently. Review of Systems As per HPI Past Medical History Past Medical History: Hypertension, Thyroid Disorder Additional Past Medical History / Comment(s): addisons disease History of Any Multi-Drug Resistant Organisms: None Reported Additional Past Surgical History / Comment(s): dental implant thyroid Past Psychological History: No Psychological Hx Reported Past Alcohol Use History: None Reported Past Drug Use History: None Reported Medications and Allergies Home Medications Medication Instructions Recorded Confirmed Type Hydrocortisone [Cortef] 10 mg PO BID 11/07/14 06/24/23 History Levothyroxine Sodium [Synthroid] 75 mcg PO DAILY 11/15/16 06/24/23 History lisinopriL [Prinivil] 20 mg PO BID 11/15/16 06/24/23 History Rosuvastatin [Crestor] 20 mg PO HS 06/24/23 06/24/23 History hydrALAZINE HCL [Apresoline] 25 mg PO QID 06/24/23 06/24/23 History Allergies Allergy/AdvReac Type Severity Reaction Status Date / Time adhesive Allergy Rash/Hives Verified 06/24/23 19:25 Physical Exam Vitals: Vital Signs Temp Pulse Pulse Resp BP BP Pulse Ox 06/25/23 07:00 98.0 F 68 18 177/87 95 06/25/23 06:00 53 L 124/72 06/25/23 05:00 54 L 109/67 06/25/23 04:00 59 L 16 118/71 06/25/23 02:26 77 18 120/67 98 06/25/23 01:15 68 18 133/65 98 06/24/23 21:30 62 18 136/71 98 06/24/23 21:00 64 18 151/75 99 06/24/23 20:30 68 17 138/72 99 06/24/23 20:00 67 18 140/72 98 06/24/23 19:30 72 17 132/68 98 06/24/23 19:00 69 18 154/72 99 06/24/23 18:30 61 18 228/103 99 06/24/23 18:00 62 18 205/88 99 06/24/23 17:30 57 L 18 191/85 99 06/24/23 16:42 98.3 F 60 15 220/95 97 Intake and Output 06/24/23 06/25/23 06/25/23 22:59 06:59 14:59 Other: Weight 61.235 kg Agent is awake, comfortable, no acute distress Alert oriented 3 Examination of the heart S1 and S2 Examination of the lungs bilateral breath sounds are heard Abdomen is soft nontender Examination of the lower extremities shows no evidence of edema REHABILITATION THERAPY TECHNICIAN exam grossly intact Results - Lab Results Most recent lab results Calcium 9.6 mg/dL (8.4-10.2) 06/25/23 10:22 06/25/23 10:22 06/25/23 10:22 Assessment and Plan Assessment: 1. Hypertensive urgency in a patient with previously well-controlled hypertension on one medication. No obvious stress inducing factors identified. No history of NSAIDs. Potassium is low in spite of significant dose of ZULEIMA inhibitors. Secondary causes of hypertension should be ruled out. Given the patient's history of adrenal insufficiency, underlying adrenal gland adenoma is unlikely however due to the presence of hypokalemia and new onset of uncontrol led hypertension I will proceed with workup. Patient is also advised to follow- up with endocrinology. I will continue current dose of Cortef. Since the blood pressure is quite adequately controlled with current regimen I will not add any new medications however patient is advised that if her blood pressure is uncontrolled post discharge she can start low-dose Aldactone. CT angiogram to rule out renal artery stenosis will be ordered along with serum aldosterone and renin levels. Of note is that TSH is low at 0.07 but T4 level is within range. Consider decreasing dose of Synthroid versus follow-up with endocrinology as this could be be secondary hypothyroidism. 2. History of adrenal insufficiency diagnosed about 45-50 years ago after . 3. Hypokalemia in a patient with uncontrolled hypertension and max dose of ZULEIMA inhibitor's, rule out hyperaldosteronism, primary versus secondary 4. Hypothyroidism with low TSH and within range T4 levels. Possible secondary hypothyroidism versus need for decreasing dose of Synthroid Plan: Replace potassium Check serum aldosterone and renin levels Check CTA of the renal arteries rule out renal artery stenosis. Consider decreasing dose of Synthroid as TSH is quite low unless this is central/ secondary hypothyroidism. Free T4 is not elevated Continue current antihypertensive regimen Patient is advised to follow-up with endocrinology post discharge. Next Thank you for the consultation. We will continue to follow the patient with you during her hospitalization.
--- NOTE | 2023-06-25 12:41 | HP ---
HISTORY AND PHYSICAL CHIEF COMPLAINT: Hypertension, failure of outpatient treatment. HISTORY OF PRESENT ILLNESS: This is a 72-year-old woman with a past medical history of multiple medical problems including Ángel's disease since 1973 which was diagnosed after a , was complaining of labile hypertension for the last several days. The blood pressure is even up to 300 and the patient was sent from Dr. Mckeon's office for control of blood pressure. There is no history of any fever, rigors, or chills. The patient is complaining of some head pressure. Multiple consultants are following the patient closely at this time. The patient's potassium is 3.2. The patient had an exophytic cyst in the upper pole of left kidney. PAST MEDICAL HISTORY: Reviewed include Zanoni's disease, rest of the history and rest of the chart is also reviewed. HOME MEDICATIONS: Include lisinopril and rest of the dose and rest of medications reviewed. ALLERGIES: Adhesives. FAMILY HISTORY: No history of heart disease or strokes in the family. SOCIAL HISTORY: No history of smoking or alcohol. REVIEW OF SYSTEMS: A 14-point review is negative except as mentioned earlier. PHYSICAL EXAMINATION: VITAL SIGNS: Pulse is 68, blood pressure 177/87, respirations 18. HEENT: Conjunctivae normal. NECK: No jugular venous distention. CARDIOVASCULAR: S1, S2 muffled. RESPIRATIONS: Diminished at the bases. No rhonchi, no crackles. ABDOMEN: Soft, nontender. LEGS: No edema, no swelling. NERVOUS SYSTEM: No focal deficits. LABORATORY DATA: Noted. ASSESSMENT: 1. Accelerated uncontrolled hypertension with failure of outpatient treatment. 2. Labile hypertension. 3. History of Zanoni's disease. 4. Hypokalemia. 5. Hypothyroidism. 6. History of dental implants. 7. Stable exophytic cyst upper pole of left kidney in the previous CAT scan. RECOMMENDATIONS: This 72-year-old woman presented with multiple complex medical issues, we will monitor the patient closely, adjust the blood pressure medications and we will consult Nephrology and Cardiology and continue to monitor. I would also recommend CT of the brain and also renal ultrasound to rule out possible renal artery stenosis. Prognosis guarded because of multiple complex medical conditions. CT abdomen also will be ordered to complete the workup. Once again, Prognosis guarded. Discussed with the patient, she understands and agrees. MMODL / IJN: [id number] /
[2023-06-25] MEDS ORDERED: hydrALAZINE HCL 25 MG TAB PO SCH (13:00)
--- NOTE | 2023-06-25 13:56 | CT ---
EXAMINATION TYPE: CT brain wo con CT DLP: 1081.6 mGycm, Automated exposure control for dose reduction was used. DATE OF EXAM: 06/25/2023 1:51 PM COMPARISON: Prior CT Brain from 06/05/2018 . CLINICAL INDICATION:Female, 72 years old with history of hypertension, htn TECHNIQUE: Brain: Multiple axial CT images of the brain were obtained without IV contrast. Coronal and sagittal reformats reviewed. FINDINGS: Brain: Extra-axial spaces: No abnormal extra-axial fluid collections. Ventricular system: Within normal limits Cerebral parenchyma: Mild cerebral volume loss. No acute intraparenchymal hemorrhage or mass effect. The dubose-white junction is well differentiated. Scattered hypoattenuating areas are seen within the periventricular white matter. Nonspecific bilateral basal ganglia calcifications. Cerebellum: Unremarkable. Mass effect: No evidence of midline shift. Intracranial vasculature: Atherosclerotic calcifications of the intracranial vessels. Soft tissues: Normal. Calvarium/osseous structures: No depressed skull fracture. Paranasal sinuses and mastoid air cells: Clear Visualized orbits: Bilateral aphakia IMPRESSION: 1. No acute intracranial process. 2. Nonspecific white matter changes, likely secondary to chronic small vessel ischemic disease.
--- NOTE | 2023-06-25 14:08 | CT ---
EXAMINATION TYPE: CT ChestAbdPelvis wo con CT DLP: 549.5 mGycm, Automated exposure control for dose reduction was used. DATE OF EXAM: 06/25/2023 1:51 PM COMPARISON: CT abdomen pelvis 07/16/2020 CLINICAL INDICATION:Female, 72 years old with history of hypertension; PHH, unknown reason for htn Technique: Multiple axial images of the chest, abdomen, and pelvis were obtained without the administ ration of intravenous contrast. Oral contrast was administered. Two-dimensional coronal and sagittal reconstructions were obtained. Findings: Evaluation is limited due to lack of intravenous contrast. CHEST: LUNGS/ PLEURA: The lung parenchyma appears unremarkable. No suspicious pulmonary nodule or mass. AIRWAY: Patent and unremarkable.. HEART: Size within normal limits. No pericardial effusion. MEDIASTINUM: No evidence of adenopathy. VASCULATURE: No aortic aneurysm. Mild atherosclerotic calcification of the aorta and its branches. MUSCULOSKELETAL: No acute osseous abnormalities. SOFT TISSUES/LYMPH NODES: Dystrophic calcifications within the bilateral breasts. LOWER NECK: No significant findings. ABDOMEN: ABDOMEN LIVER: Unremarkable GALLBLADDER AND BILE DUCTS: Unremarkable. PANCREAS: Unremarkable. SPLEEN: Unremarkable. ADRENAL GLANDS: Unremarkable. KIDNEYS AND URETERS: No evidence of hydronephrosis or renal calculus. Exophytic left superior pole 1. 5 cm lesion with Hounsfield unit of 48. This is stable from 2019 PELVIS BLADDER: Unremarkable REPRODUCTIVE: Unremarkable. ABDOMEN & PELVIS STOMACH AND BOWEL: Stomach and duodenum are unremarkable. No focal bowel wall thickening or surroundi ng inflammatory changes. Enteric contrast reaches the distal small bowel. No evidence of bowel obstru ction. PERITONEUM: No evidence of pneumoperitoneum or free fluid. VASCULATURE: Mild atherosclerotic calcifications are present throughout the abdominal aorta and its b ranches. MUSCULOSKELETAL: No acute osseous abnormalities LYMPH NODES: No evidence for lymphadenopathy. SOFT TISSUE/ABDOMINAL WALL: Unremarkable IMPRESSION: 1. No acute process within the chest, abdomen or pelvis. 2. Stable 1.5 cm left renal lesion dating back to 2019 and consider benign likely representing a prot einaceous/hemorrhagic cyst.
[2023-06-25] MEDS: ATORVASTATIN 40 MG TAB PO SCH (22:03)
[2023-06-26] MEDS: LEVOTHYROXINE 50 MCG TAB PO SCH (06:26)
--- NOTE | 2023-06-26 08:20 | CT ---
INDICATION: Patient age:Female; 72 years old; Reason for study: r/o renal artery stenosis; [facility]. COMPARISON: CT chest abdomen pelvis 06/25/2023 TECHNIQUE: Multiple thin slice sub-millimeter images were obtained through the abdomen before and aft er administration of contrast. Patient was given Isovue 370, 75 cc intravenously. 3-D reconstructed images and maximum intensity projection images were obtained of the arterial vasculature of the abdo men. One or more CT dose reduction strategies were utilized during this examination. DLP administered was 372.90 mGycm. FINDINGS: CTA Abdomen and pelvis: The abdominal aorta does not demonstrate aneurysmal dilatation. Atherosclero tic plaquing is identified within the abdominal aorta. The origins of the superior mesenteric artery , renal arteries, inferior mesenteric artery, and celiac axis are patent. There are 2 right renal ar teries and single left renal artery. 1No evidence for renal artery stenosis. VISCERA ABDOMEN: Liver: Unremarkable. Gallbladder and Bile ducts: Unremarkable. Pancreas: Unremarkable. Spleen: Unremarkable. Adrenal glands: Unremarkable. Kidneys and Ureters: No hydronephrosis or renal calculus. Stable 1.5 cm exophytic left superior pole lesion dating back to 2019 and considered benign. No enhancement identified. Likely proteinaceous/hem orrhagic cyst. Stomach and Bowel: No evidence of bowel obstruction or bowel wall thickening. Residual enteric contra st is demonstrated within the colon. Peritoneum: No evidence of pneumoperitoneum, free fluid, or adenopathy. Vasculature: Unremarkable. No aortic aneurysm. Musculoskeletal: The osseous structures appear intact. LOWER CHEST: No significant findings. IMPRESSION: No CTA evidence for renal artery stenosis.
[2023-06-26 08:56] LABS: Hyaline Casts,Urine 1 /lpf (0-2); Mucus,Urine Rare /hpf; RBC,Urine 4 /hpf (0-5); Squamous Epithelial Cell,Urine 3 /hpf (0-4); WBC,Urine 6 /hpf (0-5)
[2023-06-26 08:59] LABS: Appearance,Urine Cloudy (Clear); Bilirubin,Urine Negative (Negative); Blood,Urine Small (Negative); Color,Urine Yellow; Glucose,Urine (UA) Negative (Negative); Ketones,Urine Negative (Negative); Nitrite,Urine Negative (Negative); PH, Urine 6.5 (5.0-8.0); Protein,Urine Trace (Negative); Specific Gravity,Urine 1.015 (1.001-1.035); Urobilinogen,Urine <2.0 mg/dL (<2.0)
[2023-06-26 09:00] LABS: Leukocyte Esterase,Urine Moderate (Negative)
[2023-06-26 09:14] LABS: Basophils # (A) 0.07 X 10*3/uL (0.00-0.10); Basophils % (A) 0.7 %; Eosinophils # (A) 0.35 X 10*3/uL (0.04-0.35); Eosinophils % (A) 3.6 %; HCT 39.7 % (37.2-46.3); Lymphocytes # (A) 1.67 X 10*3/uL (0.90-5.00); Lymphocytes % (A) 17.3 %; MCHC 32.7 d/dL (32.0-37.0); MCV 88.4 FL (80.0-97.0); Mean Platelet Volume 13.7 FL (9.5-12.2); Monocytes # (A) 0.64 X 10*3/uL (0.20-1.00); Monocytes % (A) 6.6 %; NRBC Per 100 WBC 0 X 10*3/uL (0.00-0.01); Neutrophils % (A) 71.5 %; Platelet Count 194 X 10*3/uL (140-440); RBC 4.49 X 10*6/uL (4.10-5.20); RDW 14.3 % (11.5-14.5); WBC 9.66 X 10*3/uL (4.50-10.00)
[2023-06-26 09:31] LABS: ALT 11 U/L (8-44); AST 19 U/L (13-35); Albumin 3.7 d/dL (3.8-4.9); Albumin/Globulin Ratio 1.68 Ratio (1.60-3.17); Alkaline Phosphatase 61 U/L (41-126); BUN/Creat Ratio 15.27 Ratio (12.00-20.00); Blood Urea Nitrogen 16.8 mg/dL (9.0-27.0); Calcium 9.4 mg/dL (8.7-10.3); Chloride 108 mmol/L (96-109); Globulin 2.2 d/dL (1.6-3.3); Glucose 89 mg/dL (70-110); Potassium 4.6 mmol/L (3.5-5.5); Sodium 147 mmol/L (135-145); Total Bilirubin 0.4 mg/dL (0.3-1.2); Total Protein 5.9 d/dL (6.2-8.2)
[2023-06-26] MEDS ORDERED: DEXTROSE 5% IN WATER 1,000 ML IV ONE (09:38)
[2023-06-26] MEDS: HYDROCORTISONE 10 MG TAB PO SCH (09:38)
--- NOTE | 2023-06-26 09:40 | P.PN ---
Subjective Patient is seen in follow-up for hypertension. Patient has a history of adrenal insufficiency and is maintained on Cortef. Blood pressure this morning was on the higher side. Orthostatics negative. No chest pain or shortness of breath. Vital signs are stable. General: No acute distress. HEENT: Head exam is unremarkable. LUNGS: No audible rhonchi or wheezes. HEART: Rate and Rhythm are regular. ABDOMEN: Nontender. EXTREMITITES: No edema. Objective - Vital Signs Vital signs: Vital Signs Temp 98.3 F 06/26/23 07:00 Pulse 64 06/26/23 07:00 Resp 18 06/26/23 07:00 BP 162/84 06/26/23 09:04 Pulse Ox 99 06/26/23 07:00 FiO2 Intake & Output 06/25/23 06/26/23 06/26/23 18:59 06:59 18:59 Intake Total 240 Balance 240 Intake: Oral 240 Other: # Voids 1 2 - Labs CBC & Chem 7: 06/26/23 04:21 06/26/23 04:21 Labs: Abnormal Lab Results - Last 24 Hours (Table) 06/25/23 06/25/23 06/26/23 Range/Units 07:50 10:22 04:21 MPV 13.7 H (9.5-12.2) FL Sodium (135-145) mmol/L Potassium 3.4 L (3.5-5.1) mmol/L Est GFR (CKD-EPI) (>=60) Glucose 101 H (74-99) mg/dL Total Protein (6.2-8.2) d/dL Albumin (3.8-4.9) d/dL Urine Appearance Cloudy H (Clear) Urine WBC 6 H (0-5) /hpf Urine Mucus Rare H (None) /hpf 06/26/23 Range/Units 04:21 MPV (9.5-12.2) FL Sodium 147 H (135-145) mmol/L Potassium (3.5-5.1) mmol/L Est GFR (CKD-EPI) 53 L (>=60) Glucose (74-99) mg/dL Total Protein 5.9 L (6.2-8.2) d/dL Albumin 3.7 L (3.8-4.9) d/dL Urine Appearance (Clear) Urine WBC (0-5) /hpf Urine Mucus (None) /hpf Assessment and Plan Plan: Assessment: 1. Hypertensive urgency with hypokalemia concerning for underlying secondary causes. However patient's also on Cortef which can cause renal potassium loss. Blood pressure Hivid negative orthostatics this morning. TSH low, free T4 normal. Renal angiogram negative for renal artery stenosis. No adrenal nodule noted. 2. Adrenal insufficiency maintained on Cortef. 3. Hypernatremia from lack of oral water intake. Plan: Add spironolactone. Decrease dose of hydrocortisone to 10 mg in the morning and 5 mg at night. Patient advised to see endocrinology outpatient. Follow-up echocardiogram. Follow-up renin and aldosterone levels as well as plasma metanephrines. Add D5W at 50 mL an hour. Repeat sodium level this evening.
[2023-06-26] MEDS: lisinopriL 20 MG TAB PO SCH ×2 (09:41→19:42)
[2023-06-26] MEDS: SPIRONOLACTONE 25 MG TAB PO SCH (09:54)
--- NOTE | 2023-06-26 12:02 | P.CRDCN ---
History of Present Illness History of present illness: HISTORY OF PRESENT ILLNESS: This is a 72-year-old female with a past medical history significant for hypertension, hyperlipidemia, hypothyroidism, and Nelson's disease. Patient does not follow with a plater printed circuit board panels. We have been asked to see the patient in consultation for hypertension. Patient examined at the bedside. Patient states her blood pressure at home has been running high. She also reports having a headache for the past 2 days. She went to see her primary care physician yesterday and was sent to the hospital for further evaluation. Blood pressure on admission was 220/95. The patient's home dose of hydrocortisone has been decreased by nephrology. Patient's blood pressure has improved this morning with a systolic in the 150s. Patient also reports having some palpitations. Telemetry reviewed with some self-limiting runs of atrial tachycardia. * EKG reveals sinus mechanism with nonspecific ST-T wave changes. Mild ST depression in inferior leads * Current home cardiac medications include lisinopril 20mg twice a day, hydralazine 25 mg 4 times a day, rosuvastatin 20 mg at night REVIEW OF SYSTEMS: At the time of my exam: CONSTITUTIONAL: Denies fever or chills. HEENT: Denies blurred vision, vision changes, or eye pain. Denies hemoptysis CARDIOVASCULAR: Denies chest pain. Denies orthopnea. Denies PND. Denies palpitations RESPIRATORY: Denies shortness of breath. GASTROINTESTINAL: Denies abdominal pain. Denies nausea or vomiting. HEMATOLOGIC: Denies bleeding disorders. GENITOURINARY: Denies any blood in urine. SKIN: Denies pruitis. Denies rash. PHYSICAL EXAM: VITAL SIGNS: Reviewed. GENERAL: Well-developed in no acute distress. HEENT: Head is normocephalic. Pupils are equal, round. Sclerae anicteric. Mucous membranes of the mouth are moist. Neck supple. No JVD or thyromegaly LUNGS: Respirations even and unlabored. Lungs essentially clear to auscultation bilaterally. HEART: Regular rate and rhythm. S1 and S2 heard. ABDOMEN: Soft. Nondistended. Nontender. EXTREMITIES: Normal range of motion. No clubbing or cyanosis. Peripheral pulses intact. No lower extremity edema NEUROLOGIC: Awake and alert. Oriented x 3. ASSESSMENT: Headache Hypertensive urgency, improved Runs of atrial tachycardia History of Ángel's disease Hyperlipidemia Hypothyroidism PLAN: Patient's dose of hydrocortisone has been decreased per nephrology Continue lisinopril Discontinue hydralazine Continue to monitor blood pressure and telemetry monitoring Obtain 2-D echo to assess cardiac structure and function Further recommendations pending patient's course Nurse practitioner note has been reviewed by physician. Signing provider agrees with the documented findings, assessment, and plan of care. Past Medical History Past Medical History: Hypertension, Thyroid Disorder Additional Past Medical History / Comment(s): addisons disease History of Any Multi-Drug Resistant Organisms: None Reported Past Surgical History: No Surgical Hx Reported Additional Past Surgical History / Comment(s): dental implant thyroid Past Psychological History: No Psychological Hx Reported Past Alcohol Use History: None Reported Past Drug Use History: None Reported Medications and Allergies Home Medications Medication Instructions Recorded Confirmed Type Hydrocortisone [Cortef] 10 mg PO BID 11/07/14 06/24/23 History Levothyroxine Sodium [Synthroid] 75 mcg PO DAILY 11/15/16 06/24/23 History lisinopriL [Prinivil] 20 mg PO BID 11/15/16 06/24/23 History Rosuvastatin [Crestor] 20 mg PO HS 06/24/23 06/24/23 History hydrALAZINE HCL [Apresoline] 25 mg PO QID 06/24/23 06/24/23 History Allergies Allergy/AdvReac Type Severity Reaction Status Date / Time adhesive Allergy Rash/Hives Verified 06/24/23 19:25 Physical Exam Vitals: Vital Signs Temp Pulse Resp BP BP BP BP 06/26/23 09:04 156/92 171/99 162/84 06/26/23 08:00 18 06/26/23 07:00 98.3 F 64 18 156/83 06/26/23 02:39 98.0 F 72 16 109/66 06/25/23 22:03 88 06/25/23 20:00 88 151/86 06/25/23 15:00 98.1 F 78 16 127/84 Pulse Ox 06/26/23 09:04 06/26/23 08:00 06/26/23 07:00 99 06/26/23 02:39 96 06/25/23 22:03 06/25/23 20:00 06/25/23 15:00 97 Intake and Output 06/25/23 06/26/23 06/26/23 22:59 06:59 14:59 Intake Total 240 35 Balance 240 35 Intake: Oral 240 35 Other: # Voids 2 Results 06/26/23 04:21 06/26/23 04:21 Cardiac Enzymes 06/26/23 Range/Units 04:21 AST 19 (13-35) U/L CBC 06/26/23 Range/Units 04:21 WBC 9.66 (4.50-10.00) X 10*3/uL RBC 4.49 (4.10-5.20) X 10*6/uL Hgb 13.0 (12.0-15.0) d/dL Hct 39.7 (37.2-46.3) % Plt Count 194 (140-440) X 10*3/uL Comprehensive Metabolic Panel 06/26/23 Range/Units 04:21 Sodium 147 H (135-145) mmol/L Potassium 4.6 (3.5-5.5) mmol/L Chloride 108 (96-109) mmol/L Carbon Dioxide 31.0 (21.6-31.8) mmol/L BUN 16.8 (9.0-27.0) mg/dL Creatinine 1.1 (0.6-1.5) mg/dL Glucose 89 (70-110) mg/dL Calcium 9.4 (8.7-10.3) mg/dL AST 19 (13-35) U/L ALT 11 (8-44) U/L Alkaline Phosphatase 61 (41-126) U/L Total Protein 5.9 L (6.2-8.2) d/dL Albumin 3.7 L (3.8-4.9) d/dL Current Medications Generic Name Dose Route Start Last Admin Trade Name Freq PRN Reason Stop Dose Admin Acetaminophen 650 mg 06/24/23 21:16 06/25/23 09:23 Acetaminophen Tab 325 Mg Tab PO 650 mg Q6HR PRN Administration Mild Pain or Fever > 100.5 Atorvastatin Calcium 40 mg 06/24/23 21:30 06/25/23 22:03 Atorvastatin 40 Mg Tab PO 40 mg HS JUAN Administration Hydrocortisone 10 mg 06/26/23 09:00 06/26/23 09:38 Hydrocortisone 10 Mg Tab PO 10 mg DAILY JUAN Administration Hydrocortisone 5 mg 06/26/23 21:00 Hydrocortisone 10 Mg Tab PO HS JUAN Dextrose/Water 1,000 mls @ 50 mls/hr 06/26/23 09:38 06/26/23 09:51 Dextrose 5%-Water Iv Soln IV 06/27/23 05:37 50 mls/hr .Q20H ONE Administration Levothyroxine Sodium 50 mcg 06/26/23 06:30 06/26/23 06:26 Levothyroxine 50 Mcg Tab PO 50 mcg DAILY@0630 JUAN Administration Lisinopril 20 mg 06/25/23 09:00 06/26/23 09:41 Lisinopril 20 Mg Tab PO 20 mg BID JUAN Administration Miscellaneous Information 1 each 06/25/23 07:15 Potassium Replacement Protocol 1 Each Misc MISCELLANE DAILY PRN Per Protocol Protocol Naloxone HCl 0.2 mg 06/24/23 21:02 Naloxone 0.4 Mg/Ml 1 Ml Vial IV Q2M PRN Opioid Reversal Spironolactone 25 mg 06/26/23 09:45 06/26/23 09:54 Spironolactone 25 Mg Tab PO 25 mg DAILY JUAN Administration Intake and Output 06/25/23 06/26/23 06/26/23 22:59 06:59 14:59 Intake Total 240 35 Balance 240 35 Intake: Oral 240 35 Other: # Voids 2 06/26/23 04:21 06/26/23 04:21
[2023-06-26] MEDS: hydrALAZINE HCL 25 MG TAB PO SCH (12:38)
[2023-06-26] MEDS: ATORVASTATIN 40 MG TAB PO SCH (19:42)
--- NOTE | 2023-06-26 20:21 | P.PN ---
Subjective This is a pleasant 72 years old female with multiple medical problems with headache and hypertension on 06/22 Currently patient feels better with no headache. She denies abdominal pain or abdominal pain or discomfort. Blood pressure is better controlled 124/72 and 138/83. Patient currently kept on lisinopril 20 mg twice a daily. And added Aldactone 25 mg 1 hydralazine was discontinued. Dose of levothyroxine lower to 50 g and supportive floor to 10 mg a.m. and 5 mg P.m intead of home dose of 10 mg twice a day. Vision was instructed to follow up with inspector experimental assembly as an outpatient Objective - Vital Signs Vital signs: Vital Signs Temp 98.3 F 06/26/23 07:00 Pulse 64 06/26/23 07:00 Resp 18 06/26/23 08:00 BP 162/84 06/26/23 09:04 Pulse Ox 99 06/26/23 07:00 FiO2 Intake & Output 06/25/23 06/26/23 06/26/23 18:59 06:59 18:59 Intake Total 240 853 Balance 240 853 Intake: Oral 240 853 Other: # Voids 1 2 - Exam GENERAL: The patient is alert and oriented x3, not in any acute distress. Well developed, well nourished. HEENT: Pupils are round and equally reacting to light. EOMI. No scleral icterus. No conjunctival pallor. Normocephalic, atraumatic. No pharyngeal erythema. No thyromegaly. CARDIOVASCULAR: S1 and S2 present. No murmurs, rubs, or gallops. PULMONARY: Chest is clear to auscultation, no wheezing , no crackles. ABDOMEN: Soft, nontender, nondistended, normoactive bowel sounds. No palpable organomegaly. MUSCULOSKELETAL: No joint swelling or deformity. EXTREMITIES: No cyanosis, clubbing, or pedal edema. NEUROLOGICAL: Gross neurological examination did not reveal any focal deficits. SKIN: No rashes. no petechiae. - Labs CBC & Chem 7: 06/26/23 04:21 06/26/23 17:56 Labs: Abnormal Lab Results - Last 24 Hours (Table) 06/25/23 06/26/23 06/26/23 Range/Units 07:50 04:21 04:21 MPV 13.7 H (9.5-12.2) FL Sodium 147 H (135-145) mmol/L Est GFR (CKD-EPI) 53 L (>=60) Total Protein 5.9 L (6.2-8.2) d/dL Albumin 3.7 L (3.8-4.9) d/dL Urine Appearance Cloudy H (Clear) Urine WBC 6 H (0-5) /hpf Urine Mucus Rare H (None) /hpf Assessment and Plan Assessment: Hypertension with urgency present on admission History of Ángel disease and positive Hypothyroidism Mild EKG changes Mild hypernatremia Plan: Continue with D5W Continue with lisinopril and Aldactone and monitor blood pressure Continue with current dose of Cortef and levothyroxine Cardiology and nephrology input is appreciated Follow-up echocardiogram Labs and medication were reviewed.. Continue same treatment. Continue with symptomatic treatment. Resume home medication. Monitor labs and vitals. DVT and GI prophylaxis. Further recommendations as per clinical course of the patient DVT prophylaxis: Subcutaneous heparin GI Prophylaxis: Pepcid Prognosis is guarded
[2023-06-26] MEDS ORDERED: HYDROCORTISONE 10 MG TAB PO SCH (21:00)
[2023-06-27] MEDS: LEVOTHYROXINE 50 MCG TAB PO SCH (05:33)
[2023-06-27] MEDS: lisinopriL 20 MG TAB PO SCH (08:36)
[2023-06-27] MEDS: SPIRONOLACTONE 25 MG TAB PO SCH (08:36)
[2023-06-27] MEDS: HYDROCORTISONE 10 MG TAB PO SCH (08:36)
[2023-06-27] MEDS: ACETAMINOPHEN TAB 325 MG TAB PO PRN (08:40)
[2023-06-27 09:51] LABS: Blood Urea Nitrogen 12.6 mg/dL (9.0-27.0); Calcium 9.5 mg/dL (8.7-10.3); Carbon Dioxide 23.2 mmol/L (21.6-31.8); Chloride 108 mmol/L (96-109); Glucose 73 mg/dL (70-110); Magnesium 1.9 mg/dL (1.5-2.4); Potassium 4.1 mmol/L (3.5-5.5); Sodium 142 mmol/L (135-145)
--- NOTE | 2023-06-27 11:58 | CA ---
Transthoracic Echo Report Name: Elvia Diallo Age: 72 Gender: F : 1950 Exam Date: 06/26/2023 17:20 Exam Location: [place] [facility] Ht (in): 65 Wt (lb): 135 Ordering Physician: Ashutosh Dotson MD Attending/Referring Phys: [id number], Nila Wind Site Manager Radha Otoole RDCS Procedure CPT: Indications: Rule out heart disease Cardiac Hx: Technical Quality: Technically difficult study Contrast 1: Definity Total Dose (mL): 2 Contrast 2: Total Dose (mL): MEASUREMENTS (Male / Female) Normal Values 2D ECHO LV Diastolic Diameter PLAX 3.1 cm 4.2 - 5.9 / 3.9 - 5.3 cm LV Systolic Diameter PLAX 1.6 cm IVS Diastolic Thickness 1.4 cm 0.6 - 1.0 / 0.6 - 0.9 cm LVPW Diastolic Thickness 1.3 cm 0.6 - 1.0 / 0.6 - 0.9 cm LV Relative Wall Thickness 0.9 RV Internal Dim ED PLAX 2.2 cm LA Volume 20.3 cm??? 18 - 58 / 22 - 52 cm??? LA Volume Index 12.1 cm???/m??? 16 - 28 cm???/m??? M-MODE Aortic Root Diameter MM 3.1 cm LA Systolic Diameter MM 3.2 cm LA Ao Ratio MM 1.0 AV Cusp Separation MM 1.9 cm DOPPLER AV Peak Velocity 104.6 cm/s AV Peak Gradient 4.4 mmHg AV Mean Velocity 75.6 cm/s AV Mean Gradient 2.5 mmHg AV Velocity Time Integral 21.0 cm LVOT Peak Velocity 113.3 cm/s LVOT Peak Gradient 5.1 mmHg LVOT Velocity Time Integral 23.2 cm MV Area PHT 3.8 cm??? Mitral E Point Velocity 58.4 cm/s Mitral A Point Velocity 99.1 cm/s Mitral E to A Ratio 0.6 MV Deceleration Time 201.6 ms MV E' Velocity 5.8 cm/s Mitral E to MV E' Ratio 10.1 TR Peak Velocity 153.1 cm/s TR Peak Gradient 9.4 mmHg Right Ventricular Systolic Press 13.6 mmHg FINDINGS Left Ventricle Moderately increased left ventricular wall thickness. Left ventricular cavity size normal. Normal left ventricular systolic function with no obvious regional wall motion abnormalities. Left ventricular ejection fraction is estimated at 55-60 %. Right Ventricle Normal right ventricular size and function. Right ventricular systolic pressure within normal limits. Right Atrium Normal right atrial size. Left Atrium Normal left atrial size. Mitral Valve Structurally normal mitral valve. Mild mitral annular calcification. Trace to mild mitral regurgitation. Aortic Valve No aortic valve stenosis or regurgitation. Tricuspid Valve Structurally normal tricuspid valve. Mild tricuspid regurgitation. Pulmonic Valve Structurally normal pulmonic valve. Pericardium No pericardial effusion. Aorta Normal size aortic root and proximal ascending aorta. CONCLUSIONS Moderately increased left ventricular wall thickness Left ventricular ejection fraction 55-60% RVSP 13 Trace to mild mitral regurgitation Mild tricuspid regurgitation Previewed by: Dr. Shyam Gonzales DO (Electronically Signed) Final Date: 27 June 2023 11:57
[2023-06-27 14:45] VITALS: BP 131/71; PULSE 83; RESP 18; TEMP 98.2
--- NOTE | 2023-06-27 15:49 | P.PN ---
Subjective Progress Note Date: 06/27/23 HISTORY OF PRESENT ILLNESS: This is a 72-year-old female with a past medical history significant for hypertension, hyperlipidemia, hypothyroidism, and [place]'s disease. 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 We have been asked to see the patient in consultation for hypertension. Patient examined at the bedside. Patient states her blood pressure at home has been running high. She also reports having a headache for the past 2 days. She went to see her primary care physician yesterday and was sent to the hospital for further evaluation. Blood pressure on admission was 220/95. The patient's home dose of hydrocortisone has been decreased by nephrology. Patient's blood pressure has improved this morning with a systolic in the 150s. Patient also reports having some palpitations. Telemetry reviewed with some self-limiting runs of atrial tachycardia. * EKG reveals sinus mechanism with nonspecific ST-T wave changes. Mild ST depression in inferior leads * Current home cardiac medications include lisinopril 20mg twice a day, hydralazine 25 mg 4 times a day, rosuvastatin 20 mg at night 06/27/2023 CTA with no evidence of renal artery stenosis. ECHO with EF 55-60%, moderate LVH, mild tricuspid regurgitation. Creat 0.9. SBP 120-160's. Orthostat VS negative. She reports feeling better, intermittent pounding in her head. Denies any chest pain or pressure. No shortness of breath. PHYSICAL EXAM: VITAL SIGNS: Reviewed. GENERAL: Well-developed in no acute distress. HEENT: Head is normocephalic. LUNGS: Respirations even and unlabored. Lungs essentially clear to auscultation bilaterally. HEART: Regular rate and rhythm. S1 and S2 heard. ABDOMEN: Soft. Nondistended. Nontender. EXTREMITIES: Normal range of motion. No clubbing or cyanosis. Peripheral pulses intact. No lower extremity edema NEUROLOGIC: Awake and alert. Oriented x 3. ASSESSMENT: Headache Hypertensive urgency, improved Runs of atrial tachycardia History of Ángel's disease Hyperlipidemia Hypothyroidism LVH PLAN: Patient's dose of hydrocortisone has been decreased per nephrology. Continue lisinopril and spironolactone. Continue to monitor blood pressure, discussed limiting salt intake. Echo reviewed. OK to discharge home from cardiology standpoint. Follow up in clinic in 1 week. Nurse practitioner note has been reviewed by physician. Signing provider agrees with the documented findings, assessment, and plan of care. Objective - Vital Signs Vital signs: Vital Signs Temp 98.3 F 06/27/23 07:52 Pulse 80 06/27/23 07:52 Resp 19 06/27/23 08:36 BP 142/79 06/27/23 07:52 Pulse Ox 97 06/27/23 07:52 FiO2 Intake & Output 06/26/23 06/27/23 06/27/23 18:59 06:59 18:59 Intake Total 1075 680 Balance 1075 680 Intake: Oral 1075 680 Other: Voiding Method Toilet # Voids 2 - Labs CBC & Chem 7: 06/26/23 04:21 06/27/23 05:41
--- NOTE | 2023-06-29 06:25 | P.DS ---
Providers Date of admission: 06/24/23 21:03 Attending physician: Ever Boucher Consults: 06/24/23 21:16 Consult Physician Urgent Consulting Provider: Kristal Dotson Consult Reason/Comments: accelerated htn, addisons disease Do you want consulting provider notified?: Yes 06/25/23 19:59 Consult Physician Urgent Consulting Provider: Shyam Gonzales Consult Reason/Comments: st depression on ekg Do you want consulting provider notified?: Yes, Notify in am Primary care physician: [facility] Course: Diagnoses: Hypertension with urgency present on admission. improved upon discharge History of [place] disease and positive Hypothyroidism Mild EKG changes Mild hypernatremia Hospital course: This is a pleasant 72 years old female with multiple medical problems with headache and hypertension on 06/22 Currently patient feels better with no headache. She denies abdominal pain or abdominal pain or discomfort. No chest pain no dyspnea. Blood pressure which was elevated on admission at 220/95, now is better controlled 131/71 upon discharge. Patient currently kept on lisinopril 20 mg twice a daily. And added Aldactone while 25 mg of hydralazine was discontinued. Dose of levothyroxine is lowered to 50 g (because pt had low TSH :0.077 )and cortef to 10 mg a.m. and 5 mg P.m instead of home dose of 10 mg twice a day (per studio hand) .this also helped control the bp Vision was instructed to follow up with cook 3 pastry as an outpatient and pt agrees Patient also evaluated by lance crewmember/mlrs sergeant, ejection fraction 55-60%. On the day of discharge patient feels fine. She denies chest pain dyspnea. No change in urine or bowel habits. No fever. No new complaints and wants to go home. Patient was cleared for discharge by both lance crewmember/mlrs sergeant and studio hand Problems and management plan were discussed with the patient and he verbalized understanding and acceptance Patient was found stable and can be discharged home in guarded prognosis however he needs follow-up as an outpatient. Patient was instructed to follow up with PCP Dr. Light within one week and patient agrees Patient was instructed to follow up with lance crewmember/mlrs sergeant Dr. Gonzales in 1-2 weeks, studio hand Dr. Kraft in one week and cook [address] Dr[address] Mcgee in 1-2 weeks and she agrees to call and make her appointment Physical exam Gen: patient is a AAOx3, no distress CVS: S1-S2, RRR, no murmur Lungs: B/L CTA, no wheezing Abdomen: soft, no distention, no tenderness, positive bowel sounds Extremity: no leg edema or induration Time spent more than 35 minutes Patient Condition at Discharge: Stable Plan - Discharge Summary Discharge Rx Participant: No New Discharge Prescriptions: New Hydrocortisone [Cortef] 10 mg PO DAILY #30 tab Spironolactone [Aldactone] 25 mg PO DAILY #30 tab Hydrocortisone [Cortef] 5 mg PO HS #30 tab Levothyroxine Sodium [Synthroid] 50 mcg PO DAILY@0630 #30 tab Continue lisinopriL [Prinivil] 20 mg PO BID Rosuvastatin [Crestor] 20 mg PO HS Discontinued Hydrocortisone [Cortef] 10 mg PO BID Levothyroxine Sodium [Synthroid] 75 mcg PO DAILY hydrALAZINE HCL [Apresoline] 25 mg PO QID Discharge Medication List lisinopriL [Prinivil] 20 mg PO BID 11/15/16 [History] Rosuvastatin [Crestor] 20 mg PO HS 06/24/23 [History] Hydrocortisone [Cortef] 5 mg PO HS #30 tab 06/27/23 [Rx] Hydrocortisone [Cortef] 10 mg PO DAILY #30 tab 06/27/23 [Rx] Levothyroxine Sodium [Synthroid] 50 mcg PO DAILY@0630 #30 tab 06/27/23 [Rx] Spironolactone [Aldactone] 25 mg PO DAILY #30 tab 06/27/23 [Rx] Follow up Appointment(s)/Referral(s): Karan Mckeon MD [Primary Care Provider] - 1-2 days Shyam Gonzales DO [STAFF PHYSICIAN] - 2 Weeks (heart doctor ) Holden Kraft DO [STAFF PHYSICIAN] - 1 Week (kidney doctor for your high blood pressure ) Daniel Mcgee MD [REFERRING] - 2 Weeks (cook 3 pastry, hormone doctor) Patient Instructions/Handouts: [place] Disease (DC), Hypertension (DC) Activity/Diet/Wound Care/Special Instructions: Heart healthy diet Activity is restricted till you see your doctor Check blood pressure 3 times a day and keep diary. follow up as directed, sooner if worsening symptoms or concerns or return to ER Discharge Disposition: HOME SELF-CARE
[2023-07-02 19:40] LABS: Metanephrine, Free <25 pg/mL (< OR = 57); Normetanephrine, Free 105 pg/mL (< OR = 148); Total, Free (MN + NMN) 105 pg/mL (< OR = 205)
== END 2023-06-27 15:32 | disposition home or self-care (01) ==
LOC: EC 16:39 → 6NMEDSUR 21:02 → UNDOADMOB 21:02 → INTOOBSV 21:03 → OBSVTOIN 21:03 → 6NMEDSUR 22:52 → UNDODISIN 06-27 15:32
PROVIDERS: ADMIT Hospitalist; ATTEND Hospitalist
DX: I16.0 Hypertensive urgency (principal); E27.1 Primary adrenocortical insufficiency; I11.9 Hypertensive heart disease without heart failure; I47.19 Other supraventricular tachycardia; E87.0 Hyperosmolality and hypernatremia; N28.1 Cyst of kidney, acquired; E87.6 Hypokalemia; E03.9 Hypothyroidism, unspecified; I07.1 Rheumatic tricuspid insufficiency; E78.5 Hyperlipidemia, unspecified; R63.8 Other symptoms and signs concerning food and fluid intake; Z79.890 Hormone replacement therapy; Z79.52 Long term (current) use of systemic steroids; Z79.899 Other long term (current) drug therapy; Z91.048 Other nonmedicinal substance allergy status; Z96.5 Presence of tooth-root and mandibular implants
CPT/HCPCS: 96374; 99284; 36415; 93005; 83835; 84439; 80053 ×2; 80048 ×2; 84443; 82088; 84244; 83735; 84295; 85025 ×3; 81001; 70450; 71250; 74176; 74175; G0378 ×4; C8929; J0360; Q9957; Q9967; 93306

== ENCOUNTER → 2024-07-14 | Outpatient (CLI) | payer MEDICARE ==
--- NOTE | 2024-07-16 17:33 | MM ---
Reason for Exam: Screening (asymptomatic). Last screening mammogram was performed 12 month(s) ago. Patient History: Menarche at age 16. First Full-Term at age 23. Hysterectomy at age 40. Postmenopausal. Estrogen for 8 years from age 52 until age 60. 1990, Bilateral Reduction. Daughter had breast cancer, age 50. Risk Values: Claudia 5 year model risk: 3.1%. NCI Lifetime model risk: 7.5%. Prior Study Comparison: 12/03/2020 Bilateral Screening Mammogram, [facility]. 12/26/2021 Bilateral Screening Mammogram, [facility]. 07/16/2023 Bilateral Screening Mammogram, [facility]. Tissue Density: The breasts are heterogeneously dense, which may obscure small masses. Findings: Analyzed By CAD. The pattern is symmetrical. Large benign spherical calcifications are present bilaterally. No significant interval changes are evident. No suspicious groups of microcalcifications, spiculated or lobular masses, architectural distortion or other secondary signs of malignancy are mammographically apparent. Overall Assessment: Benign, BI-RAD 2 Management: Screening Mammogram of both breasts in 1 year. A negative mammogram report should not preclude additional follow up of suspicious palpable abnormalities. Patient should continue monthly self breast exam. A clinical breast exam by your physician is recommended on an annual basis and results should be correlated with mammographic findings. Note on Claudia scores and lifetime risk: 1. A Claudia score greater than 3% is considered moderate risk. If this is the case, consider specialist referral to assess eligibility for a risk reducing agent. 2. If overall lifetime risk for the development of breast cancer is 20% or higher, the patient may qualify for future screening with alternating mammogram and breast MRI. [facility], , 07/16/2024 5:31 PM. Electronically signed and approved by: Tobi Jacobs D.O. Radiologis
== END | disposition home or self-care (01) ==
LOC: RADMAMWWP 08:24
PROVIDERS: ATTEND Internal Medicine Geriatric Medicine
DX: Z12.31 Encounter for screening mammogram for malignant neoplasm of breast (principal); Z78.0 Asymptomatic menopausal state; Z80.3 Family history of malignant neoplasm of breast; R92.333 Mammographic heterogeneous density, bilateral breasts
CPT/HCPCS: 77063; 77067

== ENCOUNTER → 2025-01-06 | Outpatient (CLI) | payer MEDICARE ==
--- NOTE | 2025-01-06 15:32 | US ---
EXAMINATION TYPE: US kidneys/renal and bladder DATE OF EXAM: 01/06/2025 COMPARISON: CTA renal arteries June 26, 2023 CLINICAL INDICATION: Female, 74 years old with history of R94.4 ABNORMAL RESULTS OF KIDNEY FUNCTION S TUDIES; Hx renal cysts and benign left lesion TECHNIQUE: Grayscale imaging of the bilateral kidneys and urinary bladder: FINDINGS: EXAM MEASUREMENTS: Right Kidney: 8.7 x 5.2 x 4.6 cm Left Kidney: 9.2 x 4.9 x 3.9 cm Post Void Residual Volume: NA mL Right Kidney: Simple cysts redemonstrated Left Kidney: Simple cysts redemonstrated, echogenic area not seen on this exam Bladder: WNL Bilateral Jets seen: No Normal Post Void Residual: NA There is no evidence for hydronephrosis at this point in time. No nephrolithiasis is seen. A few sma ll simple thin-walled cysts bilaterally are redemonstrated. The urinary bladder is anechoic. IMPRESSION: No hydronephrosis is seen bilaterally. [facility], , 01/06/2025 3:29 PM
== END | disposition home or self-care (01) ==
LOC: RADUSWWP 14:20
PROVIDERS: ATTEND Internal Medicine Geriatric Medicine
DX: R94.4 Abnormal results of kidney function studies (principal)
CPT/HCPCS: 76770